=== PATIENT | female | born 1995 | race Hispanic/Latino ===

== ENCOUNTER 2018-10-03 09:34 | Inpatient (IN) | payer OTHER ==
[2018-10-03] MEDS ORDERED: SUBLIMAZE IV ONE (10:46)
[2018-10-03] MEDS ORDERED: LACTATED RINGERS 1,000 ML IV ONE (10:46)
[2018-10-03] MEDS ORDERED: XYLOCAINE 2% INFILTRATI ONE ×3 (10:52→18:17)
[2018-10-03] MEDS ORDERED: MINERAL OIL PO PRN (10:52)
[2018-10-03] MEDS ORDERED: BRETHINE IVP PRN (10:52)
[2018-10-03] MEDS ORDERED: PITOCin/NS 20 UNIT/1000ML DRIP 20,000 MILLIUNITS/1,000 ML BAG IV ONE (10:53)
[2018-10-03 10:57] LABS: Basophils % (Auto) 0.3 % (0.0-1.8); Eosinophils % (Auto) 0.2 % (0.0-4.3); Hematocrit 41.6 % (30.3-42.9); Hemoglobin 14.6 gm/dl (10.1-14.3); Lymphocytes % (Auto) 15.2 % (13.4-35.0); Mean Corpuscular HGB Conc 35 % (30-34); Mean Corpuscular Volume 90 fl (79-97); Monocytes # (Auto) 1.2 K/mm3 (0.0-0.8); Monocytes % (Auto) 9.6 % (0.0-7.3); Platelet Count 152 K/mm3 (140-440); Red Blood Count 4.61 M/mm3 (3.65-5.03); Red Cell Distribution Width 13.1 % (13.2-15.2)
--- NOTE | 2018-10-03 10:59 | History and Physical Report ---
History of Present Illness Date of examination: 10/03/18 Date of admission: 10/03/18 10:28 Chief complaint: labor History of present illness: Menstrual History Regularity: regular Duration: 4-6 LMP: 12/23/2017 LMP reliability: month known LMP character: normal test type: urine test Date: 04/24/2018 BC at conception: none Planned ? yes EDC Calculations LMP: 09/29/2018 EDC Confirmation: 09/29/2018 Gestational Age: 17 3/7 weeks Past History : 1 Term Births: 0 Premature Births: 0 Living Children: 0 Para: 0 Mult. Births: 0 Prev : 0 Aborta: 0 Elect. Ab: 0 Spont. Ab: 0 Ectopics: 0 Past Medical History: Negative Past Medical History Past Surgical History: Negative Past Surgical History Family History Summary: Other family member - Has No Family History of Ovarvian Cancer - Entered On: 04/24/2018 Other family member - Has No Family History of Colon Cancer - Entered On: 04/24/2018 Other family member - Has No Family History of Breast Cancer - Entered On: 04/24/2018 Other family member - Has Family History of Diabetes - Entered On: 04/24/2018 Social History: Marital Status: Children: 0 Occupation: [employer] Patient is Risk Factors: Smoked Tobacco Use: Never smoker Drug use: no HIV high-risk behavior: low risk Alcohol use: no Past Medical History Surgery (Non-moveman): Negative Past Surgical History Abnormal PAP: negative Uterine Anomaly: negative Social Hx: Marital Status: Children: 0 Occupation: [employer] Patient is Infection History Hx of STD: none HIV Risk Eval: low risk Hepatitis B Risk Eval: low risk Personal hx. of genital herpes: no Genetic History Congenital Heart Defect: Mom: no Dad: no Cole Disease: Mom: no Dad: no Thalassemia Mom: no Dad: no Neural Tube Defect Mom: no Dad: no Down's Syndrome Mom: no Dad: no Pillo-Sachs Mom: no Dad: no Sickle Cell Disease/Trait Mom: no Dad: no Hemophilia Mom: no Dad: no Muscular Dystrophy Mom: no Dad: no Cystic Fibrosis Mom: no Dad: no Rodriguez Chorea Mom: no Dad: no Mental Retardation Mom: no Dad: no Fragile X Mom: no Dad: no Other Genetic/Chromosomal Disorder Mom: no Dad: no Child w/other defect Mom: no Dad: no Enviromental Exposures Xray Exposure: no Current Allergies (reviewed today): * SULFA (Critical) Past History Past Medical History: other (see HPI) Past Surgical History: other (see HPI) MAINTENANCE INSPECTOR History: other (see HPI) Family/Genetic History: other (see HPI) Social history: other (see HPI) - Obstetrical History Expected Date of Delivery: 09/29/18 Actual Gestation: 40 Week(s) 4 Day(s) : 1 Para: 0 Medications and Allergies Allergies Allergy/AdvReac Type Severity Reaction Status Date / Time Sulfa (Sulfonamide Allergy Hives Verified 10/03/18 10:43 Antibiotics) Home Medications Medication Instructions Recorded Confirmed Last Taken Type Vit-Fe Fumar-FA [ 1 tab PO QDAY 10/03/18 10/03/18 10/02/18 21:00 History Vitamin] 1 Active Meds: Active Medications Lactated Ringer's (Lactated Ringers) 1,000 mls @ 125 mls/hr IV DIRECT LYUDMILA Lactated Ringer's (Lactated Ringers) 1,000 mls @ 999 mls/hr IV BOLUS ONE Stop: 10/03/18 11:46 Review of Systems All systems: negative Genitourinary: contractions - Vital Signs Vital signs: Vital Signs Pulse BP 71 119/67 10/03/18 10:03 10/03/18 10:03 Temp Pulse Resp BP Pulse Ox 71 119/67 10/03/18 10:03 10/03/18 10:03 - Physical Exam Breasts: Positive: normal Cardiovascular: Regular rate, Normal S1, Normal S2 Abdomen: Positive: normal appearance, soft, normal bowel sounds. Negative: di stention, tenderness Genitourinary (Female): Positive: normal external genitalia, normal perenium Vulva: both: normal Vagina: Positive: normal moisture. Negative: discharge Cervix: Negative: lesion, discharge Uterus: Positive: normal size, normal contour Adnexa: both: normal Anus/Rectum: Positive: normal perianal skin, heme negative. Negative: rectal mass, hemorrhoids Extremities: Deep Tendon Reflex Grade: Normal +2 - Obstetrical FHR: auscultation normal Results Result Diagrams: 10/03/18 10:30 All other labs normal. Assessment and Plan 23 y.o. at 40w4d presents to triage with c/o labor. Per wood stainer, VIPUL 8cm, 0 station, vertex, IBOW. GBS negative. Routine admission orders placed in EMR. Anticipate .
[2018-10-03] MEDS ORDERED: LACTATED RINGERS 1,000 ML IV SCH ×2 (11:00)
[2018-10-03] MEDS ORDERED: PITOCin/NS 20 UNIT/1000ML DRIP 20 UNITS/1,000 ML BAG IV SCH ×2 (11:00→19:00)
[2018-10-03] MEDS ORDERED: NARCAN 2 MG/2 ML IV PRN (12:01)
--- NOTE | 2018-10-03 12:03 | Anesthesia Consultation ---
Anesthesia Consult and Med Hx Date of service: 10/03/18 - Airway ROM Head & Neck: Adequate Mental/Hyoid Distance: Adequate Mallampati Class: Class II Intubation Access Assessment: Probably Good - Pulmonary Exam CTA: Yes - Cardiac Exam Cardiac Exam: RRR - Pre-Operative Health Status ASA Pre-Surgery Classification: ASA2 Proposed Anesthetic Plan: Epidural - Pulmonary Hx Smoking: No Hx Asthma: No Hx Respiratory Symptoms: No SOB: No COPD: No Home Oxygen Therapy: No Hx Pneumonia: No Hx Sleep Apnea: No - Cardiovascular System Hx Hypertension: No Hx Coronary Artery Disease: No Hx Heart Attack/AMI: No Hx Angina: No Hx Percutaneous Transluminal Coronary Angioplasty (PTCA): No Hx Cardia Arrhythmia: No Hx Pacemaker: No Hx Internal Defibrillator: No Hx Valvular Heart Disease: No Hx Heart Murmur: No Hx Peripheral Vascular Disease: No - Central Nervous System Hx Neuromuscular Disorder: No Hx Seizures: No CVA: No Hx Back Pain: No Hx Psychiatric Problems: No - Gastrointestinal Hx Ulcer: No Hx Gastroesophageal Reflux Disease: Yes - Endocrine Hx Renal Disease: No Hx End Stage Renal Disease: No Hx Cirrhosis: No Hx Liver Disease: No Hx Insulin Dependent Diabetes: No Hx Non-Insulin Dependent Diabetes: No Hx Thyroid Disease: No Hx Hypothyroidism: No Hx Hyperthyroidism: No - Hematic Hx Anemia: No Hx Sickle Cell Disease: No - Other Systems Hx Alcohol Use: No Hx Substance Use: No Hx Cancer: No Hx Obesity: No
--- NOTE | 2018-10-03 13:38 | Event Note ---
Date: 10/03/18 Patient resting in bed, reports she is comfortable s/p labor epidural placement. VSSAF. SVE 9.5/100/0. Category 1 tracing. Ctx q3-6 minutes, palpating moderate. DWP risks & benefits of of AROM, she agrees to proceed. AROM performed without difficulty, clear fluid. Will continue to monitor, anticipate .
[2018-10-03] MEDS: fentaNYL-BUPIV 2 MCG/ML-0.125% 200 MCG/100 ML BAG EPIDURAL SCH ×2 (14:03→17:55)
[2018-10-03] MEDS ORDERED: MARCAINE 0.25% INFILTRATI ONE (14:18)
[2018-10-03] MEDS ORDERED: METHERGINE IM ONE ×2 (16:51→16:54)
--- NOTE | 2018-10-03 17:13 | Discharge Summary ---
Providers - Providers Date of Admission: 10/03/18 10:28 Attending physician: COLTON CHAPARRO Primary care physician: COLTON CHAPARRO Core Measure Documentation - Palliative Care Palliative Care/ Comfort Measures: Not Applicable Exam - Constitutional Vitals: Temp Pulse Resp BP Pulse Ox 98.9 F 70 24 122/71 100 10/03/18 15:39 10/03/18 17:11 10/03/18 15:39 10/03/18 17:04 10/03/18 17:11 Plan Follow up with: COLTON CHAPARRO MD [Primary Care Provider] - 7 Days
[2018-10-03] MEDS ORDERED: TORADOL IV ONE (17:54)
[2018-10-03] MEDS ORDERED: SUBLIMAZE IV PRN (17:58)
[2018-10-03] MEDS ORDERED: SUBLIMAZE ONE (17:58)
--- NOTE | 2018-10-03 18:03 | Procedure Note ---
OB Delivery Note - Delivery Date of Delivery: 10/03/18 Nursing Staff Development Coordinator: LACY MORRIS Estimated blood loss: 500cc - Vaginal Delivery presentation: vertex Delivery position: OA Delivery induction: none Delivery augmentation: rupture of membranes Delivery monitor: external FHT, external uterine Route of delivery: Indicators for instrumentation: maternal exhaustion Delivery placenta: spontaneous Delivery cord: nuchal cord (x1 loose reduced) Episiotomy: midline (DWP risks/benefits, local anesthesia. Pt agrees to episiotomy. ) Delivery laceration: 4th degree (repair by Dr. Castellanos) Anesthesia: local, epidural - A at 1 minute: 8 at 5 minutes: 9 Infant Gender: Female (8#15)
[2018-10-03] MEDS ORDERED: ZOFRAN IV PRN (18:07)
[2018-10-03] MEDS ORDERED: PHENERGAN PO PRN (18:07)
[2018-10-03] MEDS ORDERED: BENADRYL PO PRN (18:07)
[2018-10-03] MEDS ORDERED: ANUCORT-HC PR PRN (18:07)
[2018-10-03] MEDS ORDERED: MILK OF MAGNESIA PO PRN (18:07)
[2018-10-03] MEDS ORDERED: TUCKS PAD TP PRN (18:07)
[2018-10-03] MEDS ORDERED: TYLENOL PO PRN (18:07)
[2018-10-03] MEDS ORDERED: LANSINOH TP PRN (18:07)
[2018-10-03] MEDS ORDERED: DULCOLAX PR PRN (18:07)
[2018-10-03] MEDS ORDERED: PHENERGAN PR PRN (18:07)
[2018-10-03] MEDS ORDERED: SODIUM CHLORIDE FLUSH SYRINGE 10 ML IV NR (19:00)
[2018-10-03] MEDS ORDERED: IBUPROFEN PO SCH (19:00)
--- NOTE | 2018-10-03 19:12 | Procedure Note ---
Date of procedure: 10/03/18 Pre-op diagnosis: 4th degree laceration Post-op diagnosis: same Procedure: Repair 4th degree laceration Patient was informed of 4th degree laceration. Area prepped with betadine and anesthesized with 2% lidocaine w/o epi. The mucosa was approximated with 3-0 vicryl. The sphincter was approximated with 3-0 vicryl figure of 8 x3. The 2nd degree episiotomy was closed with 3-0 vicryl usual fashion. No suture were palpated in rectal/anus. Small abrasion left vulvar hemostatic, no repair required. . Care discussed with patient. Anesthesia: local (2% lidocaine without epi) Surgeon: COLTON CHAPARRO Estimated blood loss: other (500mL(including delivery)) Condition: stable Disposition: floor
[2018-10-03] MEDS: DERMOPLAST TP PRN (21:37)
[2018-10-03] MEDS: COLACE PO SCH (21:37)
[2018-10-03] MEDS: TYLENOL PO SCH (21:38)
[2018-10-04] MEDS: IBUPROFEN PO SCH ×3 (02:04→19:21)
[2018-10-04] MEDS: TYLENOL PO SCH ×3 (06:08→21:45)
[2018-10-04 06:18] LABS: Hematocrit 33.8 % (30.3-42.9); Hemoglobin 11.8 gm/dl (10.1-14.3)
--- NOTE | 2018-10-04 06:51 | Progress Note ---
Assessment and Plan - Patient Problems (1) Fourth degree laceration of perineum during delivery, Onset Date: ~10/03/18 Current Visit: Yes Status: Acute Plan to address problem: Pt in very good spirits Answered questions and concerns @ 4th degree Encouraged Motrin and Tylenol Stool softeners. VSS FF below umb Lochia small perineum swelling noted intact. H&H pending. Doing well s/p vag delivery P: continue pathway Adv as tolerated. Subjective - Subjective Date of service: 10/04/18 (pt in good spirits) Principal diagnosis: Day # 1 s/p vaginal delivery 4th degree laceration Patient reports: appetite normal, voiding normally, pain well controlled, ambulating normally [place]: doing well Objective - Vital Signs Latest vital signs: Vital Signs Temp Pulse Resp BP BP Pulse Ox 10/04/18 04:03 98.3 F 54 L 18 116/61 97 10/03/18 22:05 99 F 57 L 18 140/71 10/03/18 19:16 69 135/83 10/03/18 19:01 56 L 131/83 10/03/18 18:46 61 137/80 10/03/18 18:41 69 98 10/03/18 18:36 69 98 10/03/18 18:31 62 133/77 98 10/03/18 18:26 60 97 10/03/18 18:21 65 98 10/03/18 18:17 59 L 137/72 10/03/18 18:16 64 95 10/03/18 18:11 63 97 10/03/18 18:06 64 97 10/03/18 18:01 61 136/85 98 10/03/18 17:56 67 98 10/03/18 17:51 65 98 10/03/18 17:46 64 133/75 98 10/03/18 17:41 68 100 10/03/18 17:36 60 100 10/03/18 17:31 60 125/91 100 10/03/18 17:26 62 100 10/03/18 17:21 67 99 10/03/18 17:16 84 100 10/03/18 17:11 70 100 10/03/18 17:06 71 100 10/03/18 17:04 66 122/71 10/03/18 17:01 73 100 10/03/18 17:00 99.8 F H 18 10/03/18 16:56 89 100 10/03/18 16:51 93 H 158/103 99 10/03/18 16:44 109 H 98 10/03/18 16:39 123 H 99 10/03/18 16:35 61 86 10/03/18 16:34 102 H 99 10/03/18 16:30 80 129/68 10/03/18 16:25 88 99 10/03/18 16:20 83 84 10/03/18 16:15 71 100 10/03/18 16:10 71 94 10/03/18 16:09 98 H 81 L 10/03/18 16:05 106 H 100 10/03/18 16:00 96 H 100 10/03/18 15:56 74 134/81 10/03/18 15:55 89 99 10/03/18 15:50 85 98 10/03/18 15:45 91 H 99 10/03/18 15:40 91 H 99 10/03/18 15:39 98.9 F 24 10/03/18 15:35 75 130/75 98 10/03/18 15:05 84 116/73 10/03/18 14:51 82 80 L 10/03/18 14:47 95 H 95 10/03/18 14:46 71 153/74 10/03/18 14:42 93 H 96 10/03/18 14:37 73 98 10/03/18 14:35 123 H 138/82 10/03/18 14:32 84 96 10/03/18 14:27 66 143/81 96 10/03/18 14:22 78 95 10/03/18 14:17 88 97 10/03/18 14:16 73 136/74 10/03/18 14:12 88 96 10/03/18 14:07 68 127/75 96 10/03/18 14:02 78 95 10/03/18 13:57 79 139/79 95 10/03/18 13:51 67 95 10/03/18 13:46 73 125/83 94 10/03/18 13:41 60 96 10/03/18 13:37 59 L 118/71 10/03/18 13:36 61 95 10/03/18 13:31 64 95 10/03/18 13:27 59 L 119/68 10/03/18 13:26 57 L 95 10/03/18 13:21 58 L 94 10/03/18 13:16 56 L 117/67 94 10/03/18 13:11 58 L 96 10/03/18 13:07 58 L 110/62 10/03/18 13:06 59 L 96 10/03/18 13:01 60 96 10/03/18 13:00 97.4 F L 18 10/03/18 12:56 72 106/57 96 10/03/18 12:51 64 95 10/03/18 12:47 66 111/62 10/03/18 12:46 67 96 10/03/18 12:41 62 95 10/03/18 12:36 81 96 10/03/18 12:35 71 112/55 10/03/18 12:33 71 110/55 10/03/18 12:32 96 H 121/58 10/03/18 12:31 95 H 97 10/03/18 12:29 74 116/59 10/03/18 12:27 81 114/61 10/03/18 12:26 88 92 10/03/18 12:25 75 115/60 10/03/18 12:23 69 123/67 10/03/18 12:21 74 119/63 92 10/03/18 12:19 71 122/66 10/03/18 12:18 75 93 10/03/18 12:17 81 127/70 10/03/18 12:16 69 97 10/03/18 12:11 71 92 10/03/18 12:10 71 126/79 10/03/18 12:06 70 97 10/03/18 12:01 75 96 10/03/18 11:05 76 126/79 10/03/18 10:45 98.2 F 71 20 10/03/18 10:03 71 119/67 Intake and Output 10/03/18 10/03/18 10/04/18 14:59 22:59 06:59 Intake Total 600 Output Total 300 300 Balance -300 300 Intake: Intake, Free Water 600 Output: Urine 300 300 Indwelling Catheter 300 Void 300 Other: Total, Output Amount 300 300 # Voids Void 1 2 Weight 164 lb Patient Weight 10/04/18 06:59 Weight 164 lb - Exam Breasts: Present: normal Cardiovascular: Present: Regular rate Lungs: Present: Normal air movement Abdomen: Present: normal appearance, soft, normal bowel sounds Uterus: Present: normal, fundal height below umbilicus Extremities: Present: normal Incision: Present: normal, dry, edematous, intact - Labs Labs: Abnormal lab results 10/03/18 Range/Units 10:30 WBC 12.8 H (4.5-11.0) K/mm3 Hgb 14.6 H (10.1-14.3) gm/dl MCHC 35 H (30-34) % RDW 13.1 L (13.2-15.2) % Jefferson % (Auto) 9.6 H (0.0-7.3) % Jefferson # 1.2 H (0.0-0.8) K/mm3 Seg Neutrophils % 74.7 H (40.0-70.0) % Seg Neutrophils # 9.6 H (1.8-7.7) K/mm3
[2018-10-04] MEDS ORDERED: TUCKS PAD TP PRN (06:52)
[2018-10-04] MEDS: PRENATAL VITAMIN PO SCH (10:51)
[2018-10-04] MEDS: COLACE PO SCH ×2 (10:51→21:45)
[2018-10-04] MEDS: DERMOPLAST TP PRN (11:00)
[2018-10-05] MEDS: IBUPROFEN PO SCH (02:17)
--- NOTE | 2018-10-05 08:36 | Discharge Summary ---
Providers - Providers Date of Admission: 10/03/18 10:28 Date of discharge: 10/05/18 (desires d/c home) Attending physician: COLTON CHAPARRO Primary care physician: COLTON CHAPARRO Hospitalization Reason for admission: Labor Condition: Good Pertinent studies: post delivery H&H 11.8/33.8 Procedures: , 4th degree laceration Hospital course: complicated by 4th degree laceration, uncomplicated course Disposition: - TO HOME OR SELFCARE - Discharge Diagnoses (1) Fourth degree laceration of perineum during delivery, Status: Acute (2) Spontaneous vaginal delivery Status: Acute Core Measure Documentation - Palliative Care Palliative Care/ Comfort Measures: Not Applicable - Core Measures Any of the following diagnoses?: none Exam - Constitutional Vitals: Temp Pulse Resp BP Pulse Ox 98.2 F 52 L 18 129/78 95 10/05/18 07:13 10/05/18 07:13 10/05/18 07:13 10/05/18 07:13 10/05/18 01:03 General appearance: Present: no acute distress, well-nourished - EENT Eyes: Present: PERRL ENT: hearing intact, clear oral mucosa - Neck Neck: Present: supple, normal ROM - Respiratory Respiratory effort: normal Respiratory: bilateral: CTA - Cardiovascular Heart Sounds: Present: S1 & S2. Absent: rub, click - Extremities Extremities: pulses symmetrical, No edema Peripheral Pulses: within normal limits - Abdominal General gastrointestinal: Present: soft, non-tender, non-distended, normal bowel sounds Female genitourinary: Present: normal - Integumentary Integumentary: Present: clear, warm, dry - Musculoskeletal Musculoskeletal: gait normal, strength equal bilaterally - Psychiatric Psychiatric: appropriate mood/affect, intact judgment & insight - Neurologic Neurologic: CNII-XII intact, moves all extremities - Additional findings Additional findings: + BM this morning w/o pain, fundus firm, lochia scant, Plan Activity: no restrictions Diet: regular Follow up with: COLTON CHAPARRO MD [Primary Care Provider] - 7 Days (Congratulations! Please call [phone] to schedule an appointment in 1 week to check your laceration. Call for any quesitons or concerns. ) Prescriptions: Docusate Sodium [Colace] 100 mg PO BID PRN #60 capsule PRN Reason: Constipation Ibuprofen [Motrin 800 MG tab] 800 mg PO Q8HR PRN #30 tablet PRN Reason: Pain
[2018-10-05] MEDS ORDERED: IBUPROFEN PO PRN (09:00)
--- NOTE | 2018-10-05 09:59 | Progress Note ---
Subjective Date of service: 10/05/18 Principal diagnosis: Headache Interval history: Called to assess patient for headache not responding to ibuprofen 800 mg. Pt day 2 after delivery with hx of migraines during . Headache is dull, frontal, moderate in intensity. It is not relieved by laying flat or exacerbated by standing, slight photophobia and neck stiffness. No fever, chills, signs of infection. Discussed post-dural puncture headache, headache, and migraines and this not clear which it is as well as risks/benefits of epidural blood patch, SPG block, and conservative treatment. Patient stated she did not want EBP and wished to try conservative treatment and would consult anesthesia again if symptoms became worse. Objective - Constitutional Vitals: Vital Signs - 12hr 10/05/18 10/05/18 01:03 07:13 Temperature 98.1 F 98.2 F Pulse Rate 49 L 52 L Respiratory 18 18 Rate Blood Pressure 132/78 Blood Pressure 129/78 [Right] O2 Sat by Pulse 95 Oximetry - Labs CBC & Chem 7: 10/04/18 05:54
[2018-10-05] MEDS: COLACE PO SCH (10:30)
[2018-10-05] MEDS: PRENATAL VITAMIN PO SCH (10:30)
--- NOTE | 2018-10-05 15:17 | Event Note ---
Date: 10/05/18 pt states LEAL has improving. She declined blood patch, encouraged pt to call if LEAL continues especially if it worsens with sitting up and improved with laying flat. Pt is following up in office in 1 week.
[2018-10-05 16:31] VITALS: BP 118/65
== END 2018-10-05 19:00 | disposition home or self-care (01) | DRG 775 ==
LOC: TRG 09:34 → LD 10:28 → OB 20:27
PROVIDERS: ADMIT Obstetrics & Gynecology; ATTEND Obstetrics & Gynecology
PROC: 10E0XZZ Delivery of Products of Conception, External Approach (ICD-10-PCS; principal; 2018-10-03)
PROC: 0DQP0ZZ Repair Rectum, Open Approach (ICD-10-PCS; 2018-10-03)
PROC: 10907ZC Drainage of Amniotic Fluid, Therapeutic from Products of Conception, Via Natural or Artificial Opening (ICD-10-PCS; 2018-10-03)
PROC: 3E0R3BZ Introduction of Anesthetic Agent into Spinal Canal, Percutaneous Approach (ICD-10-PCS; 2018-10-03)
PROC: 00HU33Z Insertion of Infusion Device into Spinal Canal, Percutaneous Approach (ICD-10-PCS; 2018-10-03)
PROC: 0W8NXZZ Division of Female Perineum, External Approach (ICD-10-PCS; 2018-10-03)
DX: O69.81X0 Labor and delivery complicated by cord around neck, without compression, not applicable or unspecified (principal); O70.3 Fourth degree perineal laceration during delivery; O99.354 Diseases of the nervous system complicating childbirth; G43.909 Migraine, unspecified, not intractable, without status migrainosus; K21.9 Gastro-esophageal reflux disease without esophagitis; O99.62 Diseases of the digestive system complicating childbirth; Z37.0 Single live birth; Z3A.40 40 weeks gestation of pregnancy; Z83.3 Family history of diabetes mellitus; Z88.2 Allergy status to sulfonamides
CPT/HCPCS: 36415; 85014; 85018; 85025; 86592; 86850; 86900; 86901; G0378; A6250; J1885; J2210; J2590; J3010; J7120

== ENCOUNTER 2018-10-06 08:35 | Emergency (ER) | payer OTHER ==
[2018-10-06] MEDS ORDERED: ZOFRAN IV ONE (08:58)
[2018-10-06] MEDS ORDERED: NACL 0.9% 1000 ML 1,000 ML IV ONE ×2 (08:58→09:09)
[2018-10-06] MEDS ORDERED: CAFFEINE SOD BENZOATE IV ONE (08:58)
[2018-10-06] MEDS ORDERED: DILAUDID IV ONE ×3 (08:58→15:40)
[2018-10-06] MEDS ORDERED: NACL 0.9% IV ONE (08:58)
--- NOTE | 2018-10-06 09:02 | Emergency Department Report ---
ED Headache HPI - General Chief Complaint: Headache Stated Complaint: HEADACHE/NECK PAIN Time Seen by Provider: 10/06/18 08:51 Source: patient, old records Exam Limitations: no limitations - History of Present Illness Initial Comments: 23-year-old female whocame past medical history who received an epidural for vaginal delivery 10/03/2017 presents to the hospital complains of persistent headache. Patient states he developed neck pain the day after delivery but yesterday she developed a global headache. It is constant, worse with sitting up, and improved with lying supine. Associated photophobia and nausea. No complaints of vomiting, blurred vision, focal weakness, or focal numbness. Patient denies a past medical history of migraine, headache syndrome, or family history of aneurysms. Patient's blood pressure is normal and no reports of preeclampsia during . Medical record reviewed and patient was just discharged yesterday. She had an anesthesiologist evaluation prior to discharge that documents that she declined blood patch for post-dural headache at that time. Patient was encouraged to take NSAID, drink caffeine, and drink plenty of fluids. Patient states her has jaundice and is receiving phototherapy and therefore she has not physically left the hospital since being discharged. Patient was sent down here from by labor and delivery for ER evaluation for persistent headache that was present even prior to her discharge yesterday. Patient to took ibuprofen 800 mg approximately 1-2 hours prior to arrival without improvement. She is breast feeding. Patient denies any recent trauma or head injury. Allergies/Adverse Reactions: Allergies Sulfa (Sulfonamide Antibiotics) Allergy (Verified 10/06/18 08:36) Hives Home Medications: Ambulatory Orders Vit-Fe Fumar-FA [ Vitamin] 1 tab PO QDAY 10/03/18 Docusate Sodium [Colace] 100 mg PO BID PRN #60 capsule 10/05/18 Ibuprofen [Motrin 800 MG tab] 800 mg PO Q8HR PRN #30 tablet 10/05/18 ED Review of Systems ROS: Stated complaint: HEADACHE/NECK PAIN Other details as noted in HPI Comment: All other systems reviewed and negative ED Past Medical Hx - Past Medical History Previous Medical History?: No Hx Hypertension: No Hx Heart Attack/AMI: No Hx Congestive Heart Failure: No Hx Diabetes: No Hx Deep Vein Thrombosis: No Hx Liver Disease: No Hx Renal Disease: No Hx Sickle Cell Disease: No Hx Seizures: No Hx Asthma: No Hx COPD: No Hx HIV: No - Surgical History Past Surgical History?: No Hx Pacemaker: No Hx Internal Defibrillator: No - Social History Smoking Status: Never Smoker Substance Use Type: None - Medications Home Medications: Home Medications Medication Instructions Recorded Confirmed Last Taken Type Vit-Fe Fumar-FA [ 1 tab PO QDAY 10/03/18 10/06/18 10/02/18 21:00 History Vitamin] 1 Docusate Sodium [Colace] 100 mg PO BID PRN #60 capsule 10/05/18 10/06/18 Unknown Rx Ibuprofen [Motrin 800 MG tab] 800 mg PO Q8HR PRN #30 tablet 10/05/18 10/06/18 Unknown Rx ED Physical Exam - General Limitations: No Limitations - Other Other exam information: General: No limitations, patient is alert in no acute distress Head exam: Atraumatic, normocephalic Eyes exam: Normal appearance, pupils equal reactive to light, extraocular move ments intact ENT: Moist mucous membrane, normal oropharynx Neck exam: Normal inspection, full range of motion, patient able to flex her neck although painful. Mild tenderness generalized posterior neck with palpation. Respiratory exam: Clear to auscultation bilateral, no wheezes, rales, crackles Cardiovascular: Normal rate and rhythm, normal heart sounds Abdomen: Soft, nondistended, and nontender, with normal bowel sounds, no rebound, or guarding Extremity: Full range of motion normal inspection no deformity Back: Normal Inspection, full range of motion, no tenderness Neurologic: Alert, oriented x3, cranial nerves intact, no motor or sensory deficit, finger nose finger function intact. GCS 15 Psychiatric: normal affect, normal mood Skin: Warm, dry, intact ED Course Vital Signs 10/06/18 10/06/18 10/06/18 08:39 08:47 08:49 Temperature 97.9 F Pulse Rate 78 Respiratory 18 Rate Blood Pressure 125/73 O2 Sat by Pulse 96 99 99 Oximetry 10/06/18 10/06/18 10/06/18 09:00 09:16 09:46 Temperature Pulse Rate 54 L 55 L Respiratory 10 L 12 Rate Blood Pressure 141/84 153/91 142/87 O2 Sat by Pulse 98 97 97 Oximetry 10/06/18 10/06/18 10/06/18 09:48 10:16 10:46 Temperature Pulse Rate 59 L 68 Respiratory 18 11 L 12 Rate Blood Pressure 142/86 171/97 O2 Sat by Pulse 99 98 Oximetry 10/06/18 10/06/18 10/06/18 11:16 11:46 12:00 Temperature Pulse Rate 50 L 63 62 Respiratory 10 L 10 L Rate Blood Pressure 162/97 145/90 148/94 O2 Sat by Pulse 97 98 95 Oximetry 10/06/18 10/06/18 10/06/18 12:24 12:30 13:00 Temperature Pulse Rate 56 L 61 Respiratory 18 18 11 L Rate Blood Pressure 155/90 137/90 O2 Sat by Pulse 95 96 Oximetry 10/06/18 10/06/18 13:30 14:00 Temperature Pulse Rate 61 106 H Respiratory 8 L 22 Rate Blood Pressure 148/94 132/65 O2 Sat by Pulse 96 99 Oximetry - Reevaluation(s) Reevaluation #1: 10/06/18 10:20 Patient states that her headache has improved with each treatment included Dilaudid 0.5 mg, Zofran, and IV caffeine. She is now able to move her neck more - Consultations Consultation #1: 10/06/18 09:01 case d/w anesthesia, If persitant mason after ed workup and meds will consider blood patch. 10:25a anesthesia informed pt had significant CT findings and therefore requires transfer to a hospital that has neurosurgery and blood patch is not needed at this time. 10/06/18 10:34 case d/w [facility] transfer service. awaiting call back from attending 10/06/18 11:[address] Diaz assistant corporation counsel neurosurgeon with [facility]. He suggested that the findings of air and small bleed can be due to the epidural procedure itself and due to sinus fluid leak. He suggests that patient still needs an epidural patch, monitoring, a repeat CT in 24 hours and does not require transfer to a neurosurgical facility at this time says no acute neurosurgical intervention is needed. I informed him I would attempt to admit patient here but expressed my concern that the admitting physicians here will may be uncomfortable admitting intracranial bleeds even though they don't require acute intervention. He states that the concerned physician may call him to discuss the case for joey ssurance. 10/06/18 11:13 case d/w love shank faker, requests hospitalist to admit 10/06/18 11:[address] Prater, ok with admission if anesthesia can perform blood patch 10/06/18 11:19 Case d/w anesthesia, will recontact me to determine if he feels comfortable placing blood patch given ct findings 10/06/18 11:30 Dr Nicholas (anesthesia) at bedside to evaluate pt 10/06/18 11:39 Dr Nicholas does not feel comfortable treating pt here or performing blood patch without reliable neuro protocol and thinks transfer to a facility with neurosurgical coverage is more appropriate in case condition changes. 10/06/18 11:[address] Jackson neurosurgery. Will call back once he determines the appropriate service to accept and admit this patient 10/06/18 12:10 received call back from [facility], Dr Jackson recommended admission to hospitalist service at [facility] but they do not have any beds therefore cannot accept pt 10/06/18 13:06 call placed to [facility] service 10/06/18 13:20 pt accepted to [facility] by DR stephens neurosurgery and dr Wesley market development analyst. They will attempt to accept patient to [facility] so baby can potentially be transferred as well because child cannot be admitted to [facility]. They requested blood patch prior to transfer I called anesthesia Dr Nicholas and he will come to the ED to place the blood patch prior to transfer 10/06/18 13:40 I called mother baby and spoke to AGILE TEST LEAD Kaia taking care of the the baby Savana Reyes. She is planing on d/c pt at 3p if bili has decreased. She will have case management come to ed to have pt sign release so baby might be d/dontae into 's care incase pt is transfered prior to d/c. Pt and aware of overall plan. ED Medical Decision Making - Lab Data Result diagrams: 10/06/18 10:27 10/06/18 10:27 Lab Results 10/06/18 10/06/18 10/06/18 Range/Units 10:27 10:27 10:27 WBC 13.7 H (4.5-11.0) K/mm3 RBC 4.09 (3.65-5.03) M/mm3 Hgb 12.9 (10.1-14.3) gm/dl Hct 37.8 (30.3-42.9) % MCV 92 (79-97) fl MCH 32 (28-32) pg MCHC 34 (30-34) % RDW 13.2 (13.2-15.2) % Plt Count 179 (140-440) K/mm3 Lymph % (Auto) 13.6 (13.4-35.0) % [place] % (Auto) 5.4 (0.0-7.3) % Eos % (Auto) 1.9 (0.0-4.3) % Baso % (Auto) 0.5 (0.0-1.8) % Lymph # 1.9 (1.2-5.4) K/mm3 [place] # 0.7 (0.0-0.8) K/mm3 Eos # 0.3 (0.0-0.4) K/mm3 Baso # 0.1 (0.0-0.1) K/mm3 Seg Neutrophils % 78.6 H (40.0-70.0) % Seg Neutrophils # 10.7 H (1.8-7.7) K/mm3 PT 12.9 (12.2-14.9) Sec. INR 1.00 (0.87-1.13) APTT 26.6 (24.2-36.6) Sec. Sodium 144 (137-145) mmol/L Potassium 3.9 (3.6-5.0) mmol/L Chloride 110.5 H (98-107) mmol/L Carbon Dioxide 22 (22-30) mmol/L Anion Gap 15 mmol/L BUN 8 (7-17) mg/dL Creatinine 0.6 L (0.7-1.2) mg/dL Estimated GFR > 60 ml/min BUN/Creatinine Ratio 13 % Glucose 77 (65-100) mg/dL Calcium 8.2 L (8.4-10.2) mg/dL Blood Type Antibody Screen 10/06/18 Range/Units 10:30 WBC (4.5-11.0) K/mm3 RBC (3.65-5.03) M/mm3 Hgb (10.1-14.3) gm/dl Hct (30.3-42.9) % MCV (79-97) fl MCH (28-32) pg MCHC (30-34) % RDW (13.2-15.2) % Plt Count (140-440) K/mm3 Lymph % (Auto) (13.4-35.0) % [place] % (Auto) (0.0-7.3) % Eos % (Auto) (0.0-4.3) % Baso % (Auto) (0.0-1.8) % Lymph # (1.2-5.4) K/mm3 [place] # (0.0-0.8) K/mm3 Eos # (0.0-0.4) K/mm3 Baso # (0.0-0.1) K/mm3 Seg Neutrophils % (40.0-70.0) % Seg Neutrophils # (1.8-7.7) K/mm3 PT (12.2-14.9) Sec. INR (0.87-1.13) APTT (24.2-36.6) Sec. Sodium (137-145) mmol/L Potassium (3.6-5.0) mmol/L Chloride (98-107) mmol/L Carbon Dioxide (22-30) mmol/L Anion Gap mmol/L BUN (7-17) mg/dL Creatinine (0.7-1.2) mg/dL Estimated GFR ml/min BUN/Creatinine Ratio % Glucose (65-100) mg/dL Calcium (8.4-10.2) mg/dL Blood Type A POSITIVE Antibody Screen Negative - Radiology Data Radiology results: report reviewed interpreted by me: PROCEDURE: CT HEAD/BRAIN WO CON TECHNIQUE: A noncontrast CT of the head was performed. HISTORY: post epidural headache, COMPARISON: None FINDINGS: There is some subdural hemorrhage is suspected along the left 10:24 AM. There is also some left parafalcine subdural blood. In addition there is some air/gas within the frontal horn of left lateral ventricle. Cerebral sulci are now well visualized and possibly efface. There is baker-white differentiation; nevertheless I cannot exclude mild diffuse cerebral edema. There is no midline shift. Basal cisterns appear patent but somewhat small. There is no skull fracture seen. The visualized paranasal sinuses are clear. IMPRESSION: There are small parafalcine and left tentorial subdural hemorrhages. There is a small amount of air/gas in the frontal horn of left lateral ventricle. There is poor visualization of the cerebral sulci raising concern for mild generalized brain edema. - Medical Decision Making pt will be transfered to [place] for neurosurgery monitoring of ICH. Blood patch placed in ed prior to transfer - Differential Diagnosis aneurysm, ICH, postdural headache, migraine Critical Care Time: Yes Critical care time in (mins) excluding proc time.: 75 (transfer/calls/consults) Critical care attestation.: If time is entered above; I have spent that time in minutes in the direct care of this critically ill patient, excluding procedure time. ED Disposition Clinical Impression: Post-dural puncture headache, Spontaneous vaginal delivery, Subdural hematoma Disposition: DC/TX-70 ANOTHER TYPE HLTHCARE Is pt being admited?: No Condition: Stable Time of Disposition: 15:14 (awaiting transport)
--- NOTE | 2018-10-06 10:21 | Cat Scan Report ---
PROCEDURE: CT HEAD/BRAIN WO CON TECHNIQUE: A noncontrast CT of the head was performed. HISTORY: post epidural headache, COMPARISON: None FINDINGS: There is some subdural hemorrhage is suspected along the left 10:24 AM. There is also some left paraf alcine subdural blood. In addition there is some air/gas within the frontal horn of left lateral ventricle. Cerebral sulci are now well visualized and possibly efface. There is baker-white differentiation; neve rtheless I cannot exclude mild diffuse cerebral edema. There is no midline shift. Basal cisterns appe ar patent but somewhat small. There is no skull fracture seen. The visualized paranasal sinuses are clear. IMPRESSION: There are small parafalcine and left tentorial subdural hemorrhages. There is a small amount of air/gas in the frontal horn of left lateral ventricle. There is poor visualization of the cerebral sulci raising concern for mild generalized brain edema. I directly informed Dr. Ryan of these findings on 10/06/2018 at 10:11 AM EST. This document is electronically signed by Keyla Hawley MD., October 06 2018 10:19:32 AM ET
[2018-10-06 10:44] LABS: Basophils # (Auto) 0.1 K/mm3 (0.0-0.1); Basophils % (Auto) 0.5 % (0.0-1.8); Eosinophils # (Auto) 0.3 K/mm3 (0.0-0.4); Eosinophils % (Auto) 1.9 % (0.0-4.3); Hematocrit 37.8 % (30.3-42.9); Hemoglobin 12.9 gm/dl (10.1-14.3); Lymphocytes # (Auto) 1.9 K/mm3 (1.2-5.4); Lymphocytes % (Auto) 13.6 % (13.4-35.0); Mean Corpuscular HGB Conc 34 % (30-34); Mean Corpuscular Volume 92 fl (79-97); Monocytes # (Auto) 0.7 K/mm3 (0.0-0.8); Monocytes % (Auto) 5.4 % (0.0-7.3); Platelet Count 179 K/mm3 (140-440); Red Blood Count 4.09 M/mm3 (3.65-5.03); Red Cell Distribution Width 13.2 % (13.2-15.2)
[2018-10-06 11:01] LABS: BUN/Creatinine Ratio 13; Blood Urea Nitrogen 8 mg/dL (7-17); Calcium 8.2 mg/dL (8.4-10.2); Hemolysis Index 4
[2018-10-06 11:05] LABS: Partial Thromboplastin Time 26.6 Sec. (24.2-36.6)
[2018-10-06] MEDS ORDERED: DILAUDID ONE (15:39)
--- NOTE | 2018-10-06 16:39 | Event Note ---
Date: 10/06/18 Chart reviewed, elevated BP's noted, s/w Dr. Vivar, States she was crying d/t pain. Elevated BP's probably d/t pain and IV caffeine, recommend LFT's, doubt Preeclampsia but consider MgSO4.
[2018-10-06 17:04] VITALS: BP 123/69
[2018-10-06 17:17] LABS: Alanine Aminotransferase 21 units/L (7-56); Albumin 3.5 g/dL (3.9-5)
[2018-10-06 17:40] LABS: Bilirubin,Direct < 0.2 mg/dL (0-0.2)
== END 2018-10-06 18:30 | disposition other institution (70) ==
LOC: ED 08:35
DX: O99.355 Diseases of the nervous system complicating the puerperium (principal); O99.43 Diseases of the circulatory system complicating the puerperium; G97.1 Other reaction to spinal and lumbar puncture; I62.00 Nontraumatic subdural hemorrhage, unspecified; Z88.2 Allergy status to sulfonamides
CPT/HCPCS: 36415; 70450; 80048; 80076; 85025; 85610; 85730; 86850; 86900; 86901; 96365; 96375; 96376; 99291; 99292; J1170; J2405; J7030; 96374